=== PATIENT | female | born 1975 ===

== ENCOUNTER 2018-05-30 13:24 | Outpatient (CLI) | payer BC ==
--- NOTE | 2018-05-30 16:02 | CT ---
CT ABDOMEN AND PELVIS WITH ORAL AND IV CONTRAST: HISTORY: Unintentional weight gain, edema of lower extremities, gastroesophageal reflux disease, uniform abdom inal distention. FINDINGS: There is minimal scarring versus atelectatic change in the lingula. The liver, spleen, pancreas, adr enal glands, and kidneys are normal. No calcified gallstones are noted. No free air, free fluid, or lymphadenopathy is seen in the abdomen or pelvis. The small bowel loops are not abnormally dilated. A normal-appearing appendix is present. No pericolonic inflammatory mike nges are seen. The patient is post hysterectomy. No aneurysmal dilatation of the abdominal aorta is seen. There are mild degenerative changes in the spine. A tiny fat-containing ventral hernia is se en. IMPRESSION: No significant abnormalities are identified. POS: C
[2018-05-30] MEDS ORDERED: Iopamidol 370 76% 100 ML VIAL ONE (17:02)
== END 2018-05-30 13:25 | disposition home or self-care (01) ==
LOC: BICCT 13:24
PROVIDERS: ATTEND Internal Medicine Gastroenterology
DX: K21.9 Gastro-esophageal reflux disease without esophagitis (principal); R14.0 Abdominal distension (gaseous); R63.5 Abnormal weight gain; R60.0 Localized edema
CPT/HCPCS: 74177; Q9967